=== PATIENT | male | born 1985 | race Caucasian/White ===

== ENCOUNTER 2016-10-21 16:51 | Emergency (ER) | payer OTHER ==
[2016-10-21 17:13] VITALS: BP 140/91
[2016-10-21] MEDS ORDERED: NS 0.9% 1000 ML* 1,000 ML IV ONE (17:24)
[2016-10-21] MEDS ORDERED: Ketorolac INJ* 30 MG/ML 1 ML VIAL IV ONE (17:24)
[2016-10-21 17:25] LABS: Urine Bilirubin Negative (Negative); Urine Glucose Negative (Negative); Urine Nitrite Negative (Negative)
[2016-10-21 17:41] LABS: Hematocrit 43 % (42-52); Hemoglobin 14.7 g/dl (14.0-18.0); Mean Corpuscular HGB Conc 34 g/dl (31-36); Mean Corpuscular Hemoglobin 29 pg (27-31); Mean Corpuscular Volume 87 fL (80-94); Mean Platelet Volume 8 um3 (7.4-10.4); Red Cell Distribution Width 13 % (10.5-15)
[2016-10-21 17:58] LABS: Albumin 4.4 g/dL (3.2-5.2); BUN/Creatinine Ratio 15.8 (8-20); C Reactive Protein 2.65 mg/L (< 5.00); Calcium 9.7 mg/dL (8.6-10.3); EGFR African American 155.9 (>60); EGFR Non-African American 121.3 (>60); Globulin 2.5 g/dL (2-4); Potassium 3.8 mmol/L (3.5-5.0); Total Bilirubin 0.4 mg/dL (0.2-1.0); Total Protein 6.9 g/dL (6.4-8.9)
--- NOTE | 2016-10-21 18:07 | RAD ---
CLINICAL HISTORY: Left flank pain, history of kidney stones COMPARISON: None TECHNIQUE: Multiple contiguous axial CT scans were obtained of the abdomen and pelvis, without intravenous contrast enhancement. Coronal and sagittal multiplanar reformations are submitted for review. Oral contrast was not administered. FINDINGS: The study is limited by the lack of intravenous contrast. This limits evaluation of the solid organs and vasculature. LUNG BASES: The lung bases are clear. LIVER: The liver is normal in shape, size, contour, and attenuation. BILE DUCTS: There is no intrahepatic or extrahepatic biliary dilatation. GALLBLADDER: The gallbladder is normal, without pericholecystic inflammatory change. PANCREAS: The pancreas is normal, without mass or ductal dilatation. SPLEEN: Normal in size and appearance. UPPER GI TRACT: Evaluation of the gastrointestinal tract is limited by incomplete gastric distention. The upper GI tract is unremarkable. SMALL BOWEL AND MESENTERY: The small bowel is normal in contour, course, and caliber. There is no obstruction or dilatation. COLON: The colon is normal in contour, course, caliber. There is no pericolonic inflammatory change. There is a tubular, vermiform, hollow viscus that is blind ending, and originates from the cecum, consistent with a normal appendix. There is no periappendiceal inflammatory change. ADRENALS: Normal bilaterally. KIDNEYS: There is a simple cyst of the midpole the left kidney. There is a 0.3 cm calculus of the lower pole of left kidney without caliectasis. There is no hydronephrosis. BLADDER: The bladder is smooth in contour. PELVIC ORGANS: The prostate gland is normal. The seminal vesicles are symmetric. AORTA: The aorta is normal. IVC: Unremarkable LYMPH NODES: There is no lymphadenopathy by size criteria. ABDOMINAL WALL: There is no evidence for abdominal wall hernia. BONES AND SOFT TISSUES: There are mild diffuse degenerative changes. OTHER: None IMPRESSION: PUNCTATE NONOBSTRUCTING LEFT RENAL CALCULUS.
--- NOTE | 2016-10-21 18:12 | ED ---
Back Pain - HPI Summary HPI Summary: Patient presents with left sided flank pain for the last four days that feels like the beginning of a kidney stone, which he has a history of. He was evaluated for this same sort of pain two months ago in [place] with a negative CT scan. His pain today is persistent and sharp on the left side only. He denies trauma to his back. No fever, chills, blood in his urine, abdominal pain or constipation. He has tried tylenol and ibuprofen without relief. His appetite is intact. His partner is with him and says he has not slept for four nights. - History of Current Complaint Chief Complaint: EDFlankPain Stated Complaint: LEFT FLANK PAIN Time Seen by Provider: 10/21/16 17:13 Hx Obtained From: Patient Onset/Duration: Gradual Onset Onset/Duration: Started Days Ago - 4 Timing: Constant Back Pain Location: Is Discrete @ - left flank Severity Initially: Moderate Severity Currently: Severe Pain Intensity: 7 Character: Sharp, Aching Aggravating Symptom(s): Nothing Alleviating Symptom(s): Nothing Associated Signs And Symptoms: Positive: Flank Pain - left Related History: Similar Episode Dx As - two months ago - Allergies/Home Medications Allergies/Adverse Reactions: Allergies Allergy/AdvReac Type Severity Reaction Status Date / Time No Known Allergies Allergy Verified 10/21/16 17:10 PMH/Surg Hx/FS Hx/Imm Hx Endocrine/Hematology History: Denies: Hx Anticoagulant Therapy, Hx Diabetes, Hx Thyroid Disease Cardiovascular History: Reports: Hx Hypertension Denies: Hx Pacemaker/ICD Respiratory History: Denies: Hx Asthma, Hx Chronic Obstructive Pulmonary Disease (COPD) GI History: Denies: Hx Ulcer History: Denies: Hx Renal Disease Sensory History: Denies: Hx Hearing Aid Psychiatric History: Reports: Hx Depression Denies: Hx Panic Disorder - Surgical History Surgery Procedure, Year, and Place: 1986-RIGHT INGUINAL HERNIA REPAIR Infectious Disease History: No Infectious Disease History: Denies: Hx Hepatitis, Hx Human Immunodeficiency Virus (HIV), History Other Infectious Disease, Traveled Outside the in Last 30 Days - Family History Known Family History: Positive: None - Social History Occupation: Employed Full-time Lives: With Family Alcohol Use: None Substance Use Type: Reports: None Smoking Status (MU): Light Every Day Tobacco Smoker Type: Cigarettes Amount Used/How Often: 5 cigs per day Cessation Counseling: Patient Advised to Stop Review of Systems Negative: Fever, Chills Negative: Chest Pain Negative: Shortness Of Breath Negative: Abdominal Pain, Vomiting, Diarrhea, Nausea Positive: flank pain - left. Negative: burning, dysuria, discharge, frequency, hematuria, incontinence, pain, urgency Negative: Edema Negative: Bruising All Other Systems Reviewed And Are Negative: Yes Physical Exam Triage Information Reviewed: Yes Vital Signs On Initial Exam: Initial Vitals Temp Pulse Resp BP Pulse Ox 98.7 F 90 20 140/91 100 10/21/16 17:00 10/21/16 17:00 10/21/16 17:00 10/21/16 17:00 10/21/16 17:00 Vital Signs Reviewed: Yes Appearance: Positive: Well-Appearing, Well-Nourished, Pain Distress Skin: Positive: Warm, Skin Color Reflects Adequate Perfusion, Dry, Soft Head/Face: Positive: Normal Head/Face Inspection Eyes: Positive: EOMI, EARNEST, Conjunctiva Clear ENT: Positive: Hearing grossly normal Neck: Positive: Supple, Nontender Respiratory/Lung Sounds: Positive: Clear to Auscultation, Breath Sounds Present Cardiovascular: Positive: RRR Abdomen Description: Positive: Nontender, Soft, CVA Tenderness (L). Negative: CVA Tenderness (R), Distended, Guarding Bowel Sounds: Positive: Present Musculoskeletal: Positive: Strength/ROM Intact. Negative: Edema Left, Edema Right Neurological: Positive: Sensory/Motor Intact, Alert, Oriented to Person Place, Time, NV Bundle Intact Distally Psychiatric: Positive: Affect/Mood Appropriate AVPU Assessment: Alert - [place] Coma Scale Coma Scale Total: 15 Diagnostics - Vital Signs Vital Signs Temp Pulse Resp BP Pulse Ox 10/21/16 17:00 98.7 F 90 20 140/91 100 - Laboratory Lab Results: Lab Results 10/21/16 10/21/16 10/21/16 Range/Units 17:06 17:30 17:30 WBC 10.0 (3.5-10.8) 10^3/ul RBC 5.00 (4.0-5.4) 10^6/ul Hgb 14.7 (14.0-18.0) g/dl Hct 43 (42-52) % MCV 87 (80-94) fL MCH 29 (27-31) pg MCHC 34 (31-36) g/dl RDW 13 (10.5-15) % Plt Count 338 (150-450) 10^3/ul MPV 8 (7.4-10.4) um3 Neut % (Auto) 57.7 (38-83) % Lymph % (Auto) 33.0 (25-47) % [place] % (Auto) 6.9 (1-9) % Eos % (Auto) 1.5 (0-6) % Baso % (Auto) 0.9 (0-2) % Absolute Neuts (auto) 5.8 (1.5-7.7) 10^3/ul Absolute Lymphs (auto) 3.3 (1.0-4.8) 10^3/ul Absolute Monos (auto) 0.7 (0-0.8) 10^3/ul Absolute Eos (auto) 0.1 (0-0.6) 10^3/ul Absolute Basos (auto) 0.1 (0-0.2) 10^3/ul Absolute Nucleated RBC 0.01 10^3/ul Nucleated RBC % 0.1 Sodium 130 L (133-145) mmol/L Potassium 3.8 (3.5-5.0) mmol/L Chloride 109 (101-111) mmol/L Carbon Dioxide 25 (22-32) mmol/L Anion Gap -4 L (2-11) mmol/L BUN 12 (6-24) mg/dL Creatinine 0.76 (0.67-1.17) mg/dL Est GFR ( Amer) 155.9 (>60) Est GFR (Non-Af Amer) 121.3 (>60) BUN/Creatinine Ratio 15.8 (8-20) Glucose 91 (70-100) mg/dL Calcium 9.7 (8.6-10.3) mg/dL Total Bilirubin 0.40 (0.2-1.0) mg/dL AST 17 (13-39) U/L ALT 17 (7-52) U/L Alkaline Phosphatase 66 (34-104) U/L C-Reactive Protein 2.65 (< 5.00) mg/L Total Protein 6.9 (6.4-8.9) g/dL Albumin 4.4 (3.2-5.2) g/dL Globulin 2.5 (2-4) g/dL Albumin/Globulin Ratio 1.8 (1-3) Urine Color Yellow Urine Appearance Clear Urine pH 5.0 (5-9) Ur Specific [place] 1.023 (1.010-1.030) Urine Protein Negative (Negative) Urine Ketones Negative (Negative) Urine Blood Negative (Negative) Urine Nitrate Negative (Negative) Urine Bilirubin Negative (Negative) Urine Urobilinogen Negative (Negative) Ur Leukocyte Esterase Negative (Negative) Urine Glucose Negative (Negative) Result Diagrams: 10/21/16 17:30 10/21/16 17:30 Lab Statement: Any lab studies that have been ordered have been reviewed, and results considered in the medical decision making process. - CT No standard instances CT Interpretation: Positive (See Comments) CT Interpretation Completed By: Radiologist - 0.3mm non-obstructive kidney stone Back Pain Course/Dx - Diagnoses Differential Diagnosis/HQI/PQRI: Positive: Aneurysm, Arthritis, Epidural Abscess , Fracture, Herniated Disc, Neoplasm, Renal Colic, Strain, Sprain Provider Diagnoses: Kidney stone on left side Discharge - Discharge Plan Condition: Stable Disposition: HOME Prescriptions: traMADol TAB* [Ultram*] 50 mg PO Q6HR PRN #12 tab MDD 4 PRN Reason: Pain Patient Education Materials: Flank Pain (ED) Referrals: Lewis Gregorio III DREDGEMASTER [Primary Care Provider] - Additional Instructions: Please follow-up with your primary care provider in 2-3 days to discuss your intermittent symptoms. Use ibuprofen 800mg three times daily with meals for the next 3-5 days and/or tylenol for pain, and drink extra fluids. You can supplement with Tramadol for unmanaged pain. Return to the emergency department if symptoms worsen.
[2016-10-21] MEDS ORDERED: traMADol TAB* 50 MG PO ONE (18:28)
[2016-10-21] MEDS ORDERED: traMADol TAB* 50 MG ONE (18:31)
== END 2016-10-21 18:47 | disposition home or self-care (01) ==
LOC: ED 16:51
DX: N20.0 Calculus of kidney (principal); I10 Essential (primary) hypertension; F17.210 Nicotine dependence, cigarettes, uncomplicated
CPT/HCPCS: 36415; 74176; 80053; 81003; 85025; 86140; 96360; 96374; 99283; A9270-GY; J1885

== ENCOUNTER 2018-10-07 14:11 | Emergency (ER) | payer OTHER ==
--- NOTE | 2018-10-07 15:07 | ED ---
Throat Pain/Nasal Congestion - HPI Summary HPI Summary: Patient complains of bilateral lower dental pain and swelling of gums 1 week. Patient states he has been tasting purulent discharge, and has a burning sensation in his mouth. Patient concerned he has infection. States history of recurrent dental infections, and is familiar with the symptoms. Patient has been seen at [facility] twice last week for this same condition, has been refused antibiotics both times. 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 History of surgery to remove all upper teeth for same condition. Denies fever, cough, sore throat, ear pain, CP, SOB, N/V/D, abdominal pain, change in urine, change in BM. Tolerating by mouth food and fluids. Medical history is HTN, anxiety. 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 Onset/Duration: Gradual Onset, Lasting Days Severity: Moderate Associated Signs And Symptoms: Positive: Negative Cough: None - Allergies/Home Medications Allergies/Adverse Reactions: Allergies Allergy/AdvReac Type Severity Reaction Status Date / Time No Known Allergies Allergy Verified 10/21/16 17:10 PMH/Surg Hx/FS Hx/Imm Hx Endocrine/Hematology History: Denies: Hx Anticoagulant Therapy, Hx Diabetes, Hx Thyroid Disease Cardiovascular History: Reports: Hx Hypertension Denies: Hx Pacemaker/ICD Respiratory History: Denies: Hx Asthma, Hx Chronic Obstructive Pulmonary Disease (COPD) GI History: Denies: Hx Ulcer History: Denies: Hx Dialysis, Hx Renal Disease Sensory History: Denies: Hx Hearing Aid EENT History: Denies: Hx Deafness Psychiatric History: Reports: Hx Depression Denies: Hx Panic Disorder - Surgical History Surgery Procedure, Year, and Place: 1986-RIGHT INGUINAL HERNIA REPAIR Infectious Disease History: No Infectious Disease History: Denies: Hx Hepatitis, Hx Human Immunodeficiency Virus (HIV), History Other Infectious Disease, Traveled Outside the [place] in Last 30 Days - Family History Known Family History: Positive: None - Social History Alcohol Use: None Substance Use Type: Reports: None Smoking Status (MU): Light Every Day Tobacco Smoker Type: Cigarettes Amount Used/How Often: 5 cigs per day Review of Systems Constitutional: Negative Eyes: Negative Positive: Dental Pain Cardiovascular: Negative Respiratory: Negative Gastrointestinal: Negative Genitourinary: Negative Musculoskeletal: Negative Skin: Negative Neurological: Negative Psychological: Normal All Other Systems Reviewed And Are Negative: Yes Physical Exam - Summary Physical Exam Summary: No lesions, dental trauma, apical abscess noted. Positive tenderness, swelling and erythema to bilateral lower gums. Triage Information Reviewed: Yes Vital Signs On Initial Exam: Initial Vitals Temp Pulse Resp BP Pulse Ox 99.2 F 121 20 147/89 100 10/07/18 14:14 10/07/18 14:14 10/07/18 14:14 10/07/18 14:14 10/07/18 14:14 Vital Signs Reviewed: Yes Appearance: Positive: Well-Appearing Skin: Positive: Warm Head/Face: Positive: Normal Head/Face Inspection Eyes: Positive: Normal ENT: Positive: Normal ENT inspection Dental: Positive: Gross Decay/Caries @. Negative: Dental Fracture @, Abscess @ , Bleeding Neck: Positive: Supple Respiratory/Lung Sounds: Positive: Clear to Auscultation Cardiovascular: Positive: Normal Abdomen Description: Positive: Nontender Musculoskeletal: Positive: Normal Neurological: Positive: Normal Psychiatric: Positive: Normal AVPU Assessment: Alert - [place] Coma Scale Best Eye Response: 4 - Spontaneous Best Motor Response: 6 - Obeys Commands Best Verbal Response: 5 - Oriented Coma Scale Total: 15 Diagnostics - Vital Signs Vital Signs Temp Pulse Resp BP Pulse Ox 10/07/18 14:14 99.2 F 121 20 147/89 100 - Laboratory Lab Statement: Any lab studies that have been ordered have been reviewed, and results considered in the medical decision making process. EENT Course/Dx - Course Course Of Treatment: Patient complains of bilateral lower dental pain and swelling of gums 1 week. Patient states he has been tasting purulent discharge , and has a burning sensation in his mouth. Patient concerned he has infection. States history of recurrent dental infections, and is familiar with the symptoms. Patient has been seen at [facility] twice last week for this same condition, has been refused antibiotics both times. 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 History of surgery to remove all upper teeth for same condition. Denies fever, cough, sore throat, ear pain, CP , SOB, N/V/D, abdominal pain, change in urine, change in BM. Tolerating by mouth food and fluids. Medical history is HTN, anxiety. Physical exam:No lesions, dental trauma, apical abscess noted. Positive tenderness, swelling and erythema to bilateral lower gums. Vital signs within normal limits. Rx for penicillin. Follow-up with dentist - Diagnoses Provider Diagnoses: Jaw pain Discharge - Sign-Out/Discharge Documenting (check all that apply): Patient Departure - Discharge Plan Condition: Stable Disposition: HOME Prescriptions: Penicillin VK 500 MG TAB(NF) [Penicillin VK 500 mg Tab] 500 mg PO QID 7 Days # 28 tab Patient Education Materials: Toothache (ED) Referrals: Lewis Gregorio III INTERVENTIONAL NURSE [Primary Care Provider] - Additional Instructions: Follow-up with your dentist. Alternate ibuprofen 600 mg with Tylenol 650mg every 3 hours for pain control. Return to ED for any new or worsening symptoms. - Billing Disposition and Condition Condition: STABLE Disposition: Home
[2018-10-07 15:23] VITALS: BP 131/77
== END 2018-10-07 15:22 | disposition home or self-care (01) ==
LOC: ED 14:11
DX: R68.84 Jaw pain (principal); I10 Essential (primary) hypertension; F41.9 Anxiety disorder, unspecified
CPT/HCPCS: 99282